=== PATIENT | male | born 1945 | race Caucasian/White ===

== ENCOUNTER 2022-01-28 15:59 | Emergency (ER) | payer MEDICARE ==
[2022-01-28 16:34] LABS: BASOPHILS % (AUTO) 0.2 %; EOSINOPHILS % (AUTO) 0.1 %; HCT - HEMATOCRIT 38.9 % (42.0-52.0); HGB - HEMOGLOBIN 13.1 g/dL (14.0-18.0); LYMPHOCYTES # (AUTO) 1.7 10^3/uL (1.5-3.5); LYMPHOCYTES % (AUTO) 19.9 %; MEAN CORPUSCULAR HGB CONC 33.7 g/dL (32.0-36.0); MEAN CORPUSCULAR VOLUME 92.2 fL (80.0-94.0); MEAN PLATELET VOLUME 10.3 fL (7.4-11.4); MONOCYTES # (AUTO) 0.6 10^3/uL (0.0-1.0); NEUTROPHILS # (AUTO) 6.2 10^3/uL (1.5-6.6); NEUTROPHILS % (AUTO) 72.6 %; PLT - PLATELET COUNT 187 10^3/uL (130-450); RED BLOOD COUNT 4.22 10^6/uL (4.70-6.10); RED CELL DISTRIBUTION WIDTH 12.8 % (12.0-15.0); WHITE BLOOD COUNT 8.6 x10^3/uL (4.8-10.8)
[2022-01-28 16:47] LABS: PT - PROTHROMBIN TIME 11.2 secs (9.9-12.6)
[2022-01-28 16:49] LABS: ALBUMIN 4.2 g/dL (3.2-5.5); ALBUMIN/GLOBULIN RATIO 1.8 (1.0-2.2); BILIRUBIN,TOTAL 0.7 mg/dL (0.2-1.0); CALCIUM 9.5 mg/dL (8.5-10.3); POTASSIUM 3.7 mmol/L (3.5-5.0); TOTAL PROTEIN 6.6 g/dL (6.7-8.2)
--- NOTE | 2022-01-28 16:54 | ED Physician Documentation ---
History of Present Illness - Stated complaint Stated Complaint: DIZZINESS - Chief complaint Chief Complaint: Neuro - Additonal information Additional information: 76-year-old male presents to the emergency department for the feeling of somet imes being lightheaded with exertion. He occasionally will lose thought with activities especially when he is walking the beach or picking up shells. Sometimes he will simply be at rest at home and get a sudden feeling of being lightheaded. He calls this "like I am going to faint." He denies that he has any chest pain or shortness of air. No neck arm or jaw pain. He denies a sensation of the room spinning or feeling off balance. No falls or trauma. His symptoms began about a year and a half ago though have gotten progressively more frequent He states that his dad was diagnosed with a brain tumor at about this age. He denies any pertinent past medical history. Non-smoker no alcohol use. Is never been treated for hypertension diabetes or any cardiovascular disorders. Review of Systems Constitutional: denies: Fever, Chills Eyes: denies: Loss of vision, Decreased vision Ears: reports: Reviewed and negative Nose: reports: Reviewed and negative Throat: reports: Dental pain / toothache Cardiac: reports: Reviewed and negative Respiratory: reports: Reviewed and negative GI: reports: Reviewed and negative : reports: Reviewed and negative Skin: denies: Rash, Lesions Musculoskeletal: denies: Neck pain, Back pain, Extremity pain Neurologic: reports: Near syncope. denies: Generalized weakness, Focal weakness, Numbness, Syncope, Seizure, Confused, Headache PD PAST MEDICAL HISTORY - Allergies Allergies/Adverse Reactions: Allergies Allergy/AdvReac Type Severity Reaction Status Date / Time No Known Drug Allergies Allergy Verified 01/28/22 16:17 PD ED PE NORMAL - General General: Alert and oriented X 3, No acute distress, Well developed/nourished - HEENT HEENT: Atraumatic, Ears normal, Moist mucous membranes, Pharynx benign - Neck Neck: Supple, no meningeal sign, No adenopathy - Cardiac Cardiac: RRR, No murmur - Respiratory Respiratory: Clear bilaterally - Abdomen Abdomen: Normal bowel sounds, Soft, Non tender - Back Back: No CVA TTP, No spinal TTP - Derm Derm: Normal color, Warm and dry, No rash - Extremities Extremities: No deformity - Neuro Neuro: Alert and oriented X 3, counter waitress/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, No motor deficit, Normal speech, Other (Normal finger-nose, normal gait, normal heel toe, normal rapid alternating) Eye Opening: Spontaneous Motor: Obeys Commands Verbal: Oriented GCS Score: 15 - Psych Psych: Normal mood Results - Vitals Vitals: Vital Signs - 24 hr 01/28/22 01/28/22 01/28/22 16:11 16:46 17:16 Temperature 36.9 C Heart Rate 62 72 65 Heart Rate [ Sitting] Heart Rate [ Standing] Heart Rate [ Supine] Respiratory 16 16 21 Rate Blood Pressure 150/77 H 129/74 134/76 H Blood Pressure [Sitting] Blood Pressure [Standing] Blood Pressure [Supine] O2 Saturation 96 96 97 01/28/22 17:18 Temperature Heart Rate Heart Rate [ 67 Sitting] Heart Rate [ 65 Standing] Heart Rate [ 65 Supine] Respiratory Rate Blood Pressure Blood Pressure 122/72 [Sitting] Blood Pressure 134/76 H [Standing] Blood Pressure 127/66 [Supine] O2 Saturation Oxygen O2 Source Room air - EKG (time done) 1606 Rate: Rate (enter#) (67) Rhythm: NSR [place]: Normal Intervals: Normal NM QRS: Normal Ischemia: Q waves (Inferior and anterior leads) Compare to prior EKG: Old EKG unavailable Computer interpretation: Agree with computer - Labs Labs: Laboratory Tests 01/28/22 01/28/22 01/28/22 16:29 16:29 16:29 WBC 8.6 RBC 4.22 L Hgb 13.1 L Hct 38.9 L MCV 92.2 MCH 31.0 MCHC 33.7 RDW 12.8 Plt Count 187 MPV 10.3 Neut # (Auto) 6.2 Lymph # (Auto) 1.7 Desha # (Auto) 0.6 Eos # (Auto) 0.0 Baso # (Auto) 0.0 Absolute Nucleated RBC 0.00 Nucleated RBC % 0.0 PT INR Sodium 134 L Potassium 3.7 Chloride 102 Carbon Dioxide 25 Anion Gap 7.0 BUN 16 Creatinine 1.0 Estimated GFR (MDRD) 73 L Glucose 135 H Calcium 9.5 Total Bilirubin 0.7 AST 26 ALT 19 Alkaline Phosphatase 48 Troponin I High Sens 4.0 Total Protein 6.6 L Albumin 4.2 Globulin 2.4 Albumin/Globulin Ratio 1.8 Lipase 37 01/28/22 16:36 WBC RBC Hgb Hct MCV MCH MCHC RDW Plt Count MPV Neut # (Auto) Lymph # (Auto) Desha # (Auto) Eos # (Auto) Baso # (Auto) Absolute Nucleated RBC Nucleated RBC % PT 11.2 INR 1.0 Sodium Potassium Chloride Carbon Dioxide Anion Gap BUN Creatinine Estimated GFR (MDRD) Glucose Calcium Total Bilirubin AST ALT Alkaline Phosphatase Troponin I High Sens Total Protein Albumin Globulin Albumin/Globulin Ratio Lipase - Rads (name of study) cxr Radiology: Final report received (No acute cardiopulmonary process) head CT Radiology: Final report received (No acute intracranial process) PD MEDICAL DECISION MAKING - ED course Complexity details: reviewed results, re-evaluated patient, considered differential, d/w patient ED course: This is a remarkably well-appearing 76-year-old male that comes to the emergency department with vague constitutional symptoms that have been getting progressively worse over the last year. Predominantly he is expressing that he often will get a sudden feeling of being lightheaded. No feelings of being off balance. He denies that he has a sensation of dizziness or that the room is spinning. Sometimes this symptom of presyncope occurs with activity but can occur simply at rest. He is also described to this provider very vivid dreams recently and brief episodes with a lapse in memory where he is unsure what he is doing or why. Clinically he appears well. His orthostatic blood pressures are negative. He had a normal neuro and cerebellar exam. A CT of the head showed no tumor mass- effect or lesion. Screening EKG suggest old infarct in the inferior and perhaps anterior leads but he has no chest pain or dyspnea. Screening CBC electrolytes and troponin are all negative. Chest x-ray is without acute focal findings. Given his age I did report that he should be seen by his primary care provider as he would likely benefit from a stress test and/or echocardiogram. However some of the lapses in memory may be early age-related changes and I have advised him to discuss this with his doctor to determine if he would benefit from further evaluation and testing of such. Otherwise he is stable for discharge home. Emergent return precautions discussed Departure - Departure Disposition: 01 Home, Self Care Clinical Impression: Light-headed feeling, Memory changes Condition: Stable Record reviewed to determine appropriate education?: Yes Comments: Satish dennis have been seen in the emergency department today because you have been occasionally feeling lightheaded. You get brief rushes of altered sensorium. You have also occasionally had brief lapses in memory. Your screening EKG chest x-ray and labs as well as a CT of your head are all essentially unremarkable without findings to suggest infection, infarction,'s stroke or tumors. I do suggest that you follow-up closely with your primary care doctor. You may benefit from referral to a [employer] developer for stress testing and/or echoc ardiogram. You may also want to discuss with your primary care doctor if some of the symptoms that you are experiencing are age-related or age-related memory changes. If at any point you have any fainting episodes, sudden confusion, slurred speech, cannot walk normally or have focal weakness in your arms or legs you should return immediately to the ER for a second evaluation
--- NOTE | 2022-01-28 17:06 | XRAY Report ---
PROCEDURE: Chest 1 View X-Ray INDICATIONS: Chest Pain TECHNIQUE: One view of the chest was acquired. COMPARISON: None FINDINGS: Surgical changes and devices: None. Lungs and pleura: No pleural effusions or pneumothorax. Lungs are clear. Mediastinum: Mediastinal contours appear normal. Heart size is mildly enlarged. Bones and chest wall: No suspicious bony lesions. Overlying soft tissues appear unremarkable. IMPRESSION: No acute pulmonary process. Reviewed by: Angelita Hoffman MD on 01/28/2022 5:04 PM PDT Approved by: Angelita Hoffman MD on 01/28/2022 5:04 PM PDT Station ID: [id number]
--- NOTE | 2022-01-28 17:39 | CT Report ---
PROCEDURE: HEAD WO INDICATIONS: light headed; occassional confusion TECHNIQUE: Noncontrast 4.5 mm thick angled axial sections acquired from the foramen magnum to the vertex. For r adiation dose reduction, the following was used: automated exposure control, adjustment of mA and/or kV according to patient size. COMPARISON: None. FINDINGS: Image quality: Excellent. CSF spaces: Basal cisterns are patent. No extra-axial fluid collections. Ventricles are normal in size and shape. Brain: No midline shift. No intracranial masses or hemorrhage. Dueñas-white matter interface is norm al. Skull and face: Calvarium and visualized facial bones are intact, without suspicious lesions. Sinuses: Visualized sinuses and mastoids are clear. IMPRESSION: Normal head CT. Reviewed by: Johanne Sims MD on 01/28/2022 5:37 PM PDT Approved by: Johanne Sims MD on 01/28/2022 5:37 PM PDT Station ID: [id number]
[2022-01-28 17:55] VITALS: BP 123/68
== END 2022-01-28 18:02 | disposition home or self-care (01) ==
LOC: ED 15:59
DX: R42 Dizziness and giddiness (principal); R41.3 Other amnesia
CPT/HCPCS: 36415; 80053; 83690; 84484; 85025; 85610; 93005; 99283; 99284

== ENCOUNTER 2023-01-18 19:59 | Emergency (ER) | payer MEDICARE ==
[2023-01-18 20:51] LABS: BASOPHILS % (AUTO) 0.4 %; EOSINOPHILS % (AUTO) 0.2 %; HCT - HEMATOCRIT 40.5 % (42.0-52.0); HGB - HEMOGLOBIN 13.5 g/dL (14.0-18.0); LYMPHOCYTES # (AUTO) 1.5 10^3/uL (1.5-3.5); LYMPHOCYTES % (AUTO) 17.7 %; MEAN CORPUSCULAR HEMOGLOBIN 30.9 pg (27.0-31.0); MEAN CORPUSCULAR HGB CONC 33.3 g/dL (32.0-36.0); MEAN CORPUSCULAR VOLUME 92.7 fL (80.0-94.0); MEAN PLATELET VOLUME 10.6 fL (7.4-11.4); MONOCYTES # (AUTO) 0.5 10^3/uL (0.0-1.0); MONOCYTES % (AUTO) 5.6 %; NEUTROPHILS # (AUTO) 6.4 10^3/uL (1.5-6.6); NEUTROPHILS % (AUTO) 75.9 %; PLT - PLATELET COUNT 199 10^3/uL (130-450); RED BLOOD COUNT 4.37 10^6/uL (4.70-6.10); RED CELL DISTRIBUTION WIDTH 12.7 % (12.0-15.0); WHITE BLOOD COUNT 8.5 x10^3/uL (4.8-10.8)
[2023-01-18 20:57] LABS: ALBUMIN 4.3 g/dL (3.2-5.5); ALBUMIN/GLOBULIN RATIO 1.6 (1.0-2.2); BILIRUBIN,TOTAL 0.5 mg/dL (0.2-1.0); CALCIUM 9.4 mg/dL (8.5-10.3); CREATININE 1.1 mg/dL (0.6-1.2); POTASSIUM 3.9 mmol/L (3.5-5.0)
[2023-01-18 21:28] LABS: BILIRUBIN,URINE NEGATIVE (NEGATIVE); GLUCOSE, URINE (UA) NEGATIVE (NEGATIVE); KETONES,URINE (UA) NEGATIVE (NEGATIVE); LEUKOCYTE ESTERASE, URINE NEGATIVE (NEGATIVE); NITRITE,URINE NEGATIVE (NEGATIVE); OCCULT BLOOD,URINE NEGATIVE (NEGATIVE); PROTEIN,URINE NEGATIVE (NEGATIVE); UROBILINOGEN,URINE 0.2 (NORMAL) E.U./dL (NORMAL)
[2023-01-18 21:30] LABS: CLARITY,URINE CLEAR (CLEAR)
--- NOTE | 2023-01-18 22:13 | CT Report ---
PROCEDURE: HEAD WO INDICATIONS: confusion TECHNIQUE: Noncontrast 4.5 mm thick angled axial sections acquired from the foramen magnum to the vertex. For r adiation dose reduction, the following was used: automated exposure control, adjustment of mA and/or kV according to patient size. COMPARISON: None. FINDINGS: Image quality: There is mild motion artifact inferiorly. CSF spaces: Basal cisterns are patent. No extra-axial fluid collections. Ventricles are normal in size and shape. Brain: No intracranial hemorrhage, mass, or mass effect. Dueñas-white matter interface appears preser pema. Skull and face: Calvarium and visualized facial bones are intact, without suspicious lesions. Sinuses: Visualized sinuses and mastoids are clear. IMPRESSION: 1. No acute intracranial abnormality. Reviewed by: Mariusz Horton MD on 01/18/2023 10:12 PM PDT Approved by: Mariusz Horton MD on 01/18/2023 10:12 PM PDT Station ID: [id number]
--- NOTE | 2023-01-18 23:24 | ED Physician Documentation ---
History of Present Illness - Stated complaint Stated Complaint: STROKE-LIKE SYMPTOMS - Chief complaint Chief Complaint: Neuro - History obtained from History obtained from: Patient - Additonal information Additional information: 77-year-old man, previously healthy presents with confusion starting around 11 AM when he felt that he was "a little bit foggy". Patient is disoriented to year and month but knows that he is in [place]. He is unable to state his address on request. Endorses some dysuria and mild frontal headache. Collateral history obtained from patient's ex- Bhavna ([phone]) who states that she talks on the phone with him every night and that last year he had some confused spells and had a negative work-up at [facility]. She also states that he told her that he felt weird yesterday afternoon. PD PAST MEDICAL HISTORY - Allergies Allergies/Adverse Reactions: Allergies Allergy/AdvReac Type Severity Reaction Status Date / Time No Known Drug Allergies Allergy Verified 01/18/23 20:19 - Social History Does the pt smoke?: No Smoking Status: Never smoker PD ED PE NORMAL - Vitals Vital signs reviewed: Yes - General General: Alert and oriented X 3, No acute distress, Well developed/nourished - HEENT HEENT: Atraumatic, PERRL, EOMI - Neck Neck: Supple, no meningeal sign - Cardiac Cardiac: RRR - Respiratory Respiratory: No respiratory distress, Clear bilaterally - Abdomen Abdomen: Non tender, Non distended - Derm Derm: Normal color, Warm and dry - Neuro Neuro: Alert and oriented X 3, metal drawer 2-12 intact, No motor deficit, No sensory deficit Eye Opening: Spontaneous Motor: Obeys Commands Verbal: Confused GCS Score: 14 - Psych Psych: Normal mood, Normal affect Results - Vitals Vitals: Vital Signs - 24 hr 01/18/23 01/18/23 01/18/23 20:04 20:45 21:19 Temperature 37 C Heart Rate 70 71 68 Respiratory 18 17 17 Rate Blood Pressure 148/62 H 135/83 H 128/73 O2 Saturation 99 99 100 01/18/23 01/18/23 01/18/23 21:30 22:30 23:30 Temperature Heart Rate 66 62 64 Respiratory 16 18 18 Rate Blood Pressure 130/73 126/69 129/77 O2 Saturation 98 97 96 01/19/23 00:00 Temperature Heart Rate 63 Respiratory 16 Rate Blood Pressure 121/86 H O2 Saturation 98 Oxygen O2 Source Room air - Labs Labs: Laboratory Tests 01/18/23 01/18/23 01/18/23 20:21 20:21 21:14 WBC 8.5 RBC 4.37 L Hgb 13.5 L Hct 40.5 L MCV 92.7 MCH 30.9 MCHC 33.3 RDW 12.7 Plt Count 199 MPV 10.6 Neut # (Auto) 6.4 Lymph # (Auto) 1.5 [place] # (Auto) 0.5 Eos # (Auto) 0.0 Baso # (Auto) 0.0 Absolute Nucleated RBC 0.00 Nucleated RBC % 0.0 Sodium 139 Potassium 3.9 Chloride 107 Carbon Dioxide 27 Anion Gap 5.0 L BUN 16 Creatinine 1.1 Estimated GFR (MDRD) 65 L Glucose 127 H Calcium 9.4 Total Bilirubin 0.5 AST 26 ALT 19 Alkaline Phosphatase 55 Total Protein 7.0 Albumin 4.3 Globulin 2.7 Albumin/Globulin Ratio 1.6 Lipase 41 Urine Color YELLOW Urine Clarity CLEAR Urine pH 6.[address] 1.020 Urine Protein NEGATIVE Urine Glucose (UA) NEGATIVE Urine Ketones NEGATIVE Urine Occult Blood NEGATIVE Urine Nitrite NEGATIVE Urine Bilirubin NEGATIVE Urine Urobilinogen 0.2 (NORMAL) Ur Leukocyte Esterase NEGATIVE Ur Microscopic Review NOT INDICATED Urine Culture Comments NOT INDICATED PD Medical Decision Making - ED course ED course: 77-year-old man with history of confusional episodes about a year ago, independently living at home, presents with confusion and disorientation today per ex- who he talks on the phone with and himself. CBC, abdominal panel, urinalysis, head CT ordered and were unremarkable. Plan to discuss with patient and his daughter Bianca. Talked on the phone with Daughter Bianca [phone] who lives in [place], [place]. She states he has had some cognitive issues in the past few months including several spells of confusion. The patient texted Bianca and said he didn't know the day or date. He lives alone with his dog and doesn't know any neighbors. He has lived here a couple years. I discussed need for him to get a primary care provider, likely benefit of dementia medication such as remeron or memantine. d/w ex Bhavna [phone] again who states she has a number for a next door neighbor [phone], [employer] who may be able to take him home and check on his dog. Patient does not want his neighbor to pick him up, stating "he's ornery". He is requesting to drive home and now remembers his address, reciting it for us. [employer]. Cab voucher provided. Patient will f/u with a PCP for further evaluation of early symptoms of dementia. referral provided. return precautions given. Departure - Departure Disposition: Home, Self Care Clinical Impression: Confusion Condition: Stable Instructions: Dementia Follow-Up: Erick Vasquez MD [Provider Admit Priv/Credential] - Comments: You were seen in the emergency department for confusion. Your lab work, urine, and head CT uncovered no reversible cause. After talking with your family we believe you are showing signs of dementia. You might benefit from a dementia medication as prescribed by a primary care provider. I am enclosing a referral for a primary care provider. Please follow-up with them and speak with your daughter and ex- about goals of long-term care.
[2023-01-19 00:48] VITALS: BP 131/100
== END 2023-01-19 01:00 | disposition home or self-care (01) ==
LOC: ED 19:59
DX: R41.0 Disorientation, unspecified (principal)
CPT/HCPCS: 36415; 80053; 81001; 81003; 83690; 85025; 87086; 99284

== ENCOUNTER 2023-01-20 12:20 | Emergency (ER) | payer MEDICARE ==
[2023-01-20 12:39] VITALS: BP 141/73
--- NOTE | 2023-01-20 14:14 | ED Physician Documentation ---
History of Present Illness - Stated complaint Stated Complaint: MEMORY LOSS/CONFUSION - Chief complaint Chief Complaint: Neuro - History obtained from History obtained from: Patient - History of Present Illness Pain level max: 0 Pain level now: 0 - Additonal information Additional information: 77-year-old male states that he felt confused this morning. He states he had trouble remembering who his neighbor was. He states he feels better now. Was seen for similar events yesterday. Had normal blood work, normal head CT and normal urinalysis. He states that these episodes been going on for over a year. Does not yet have a primary care provider. Lives alone at home with his dog. He states he does not feel confused now. Nothing seems to make it better or worse. No slurred speech or word finding difficulties. No numbness or tingling. No focal motor deficits. No fevers, chills, recent illness. No trauma. No head, neck, back pain. Review of Systems Constitutional: denies: Fever, Chills Ears: denies: Ear pain Nose: denies: Rhinorrhea / runny nose, Congestion PD PAST MEDICAL HISTORY - Past Medical History Past Medical History: No - Allergies Allergies/Adverse Reactions: Allergies Allergy/AdvReac Type Severity Reaction Status Date / Time No Known Drug Allergies Allergy Verified 01/20/23 12:37 - Living Situation Living Arrangement: reports: At home - Social History Does the pt smoke?: No Smoking Status: Never smoker PD ED PE NORMAL - Vitals Vital signs reviewed: Yes - General General: Alert and oriented X 3, No acute distress, Well developed/nourished - HEENT HEENT: Atraumatic, PERRL, Moist mucous membranes, Pharynx benign - Neck Neck: Supple, no meningeal sign, No bony TTP - Cardiac Cardiac: RRR, Strong equal pulses - Respiratory Respiratory: No respiratory distress, Clear bilaterally - Abdomen Abdomen: Soft, Non tender, Non distended - Back Back: No spinal TTP - Derm Derm: Warm and dry - Extremities Extremities: No edema, No calf tenderness / cord - Neuro Neuro: Alert and oriented X 3, coal tram driver 2-12 intact, No motor deficit, No sensory deficit, Normal speech Eye Opening: Spontaneous Motor: Obeys Commands Verbal: Oriented GCS Score: 15 - Psych Psych: Normal mood, Normal affect Results - Vitals Vitals: Vital Signs - 24 hr 01/20/23 12:33 Temperature 36.3 C L Heart Rate 70 Respiratory 16 Rate Blood Pressure 141/73 H O2 Saturation 100 Oxygen O2 Source Room air PD Medical Decision Making - ED course Complexity details: reviewed old records, considered differential, d/w patient ED course: 77-year-old male with intermittent confusion for the past several months to year. He did have some confusion this morning. About 24 hours ago had a negative head CT negative lab work and negative urinalysis. We did discuss an MRI, unfortunately the c t tech is not here today and will not be back for 4 more days. The patient is alert, oriented, appropriate. No current deficits. NIH stroke scale of 0. Given that he is currently asymptomatic, we will start him on a baby aspirin and have him follow-up with a PCP for further neurological work-up. He is welcome to return if his symptoms recur for a potential MRI. Likely that this represents some form of dementia. Patient counseled regarding signs and symptoms for which I believe and urgent re-evaluation would be necessary. Patient with good understanding of and agreement to plan and is comfortable going home at this time This document was made in part using voice recognition software. While efforts are made to proofread this document, sound alike and grammatical errors may occur. Departure - Departure Disposition: 01 Home, Self Care Clinical Impression: Confusion Condition: Good Instructions: ED Confusion Follow-Up: Mreon Cevallos MD [Provider Admit Priv/Credential] - Meron Cevallos MD [Provider Admit Priv/Credential] - [facility] [Provider Group] [facility] [Provider Group] Primary[facility]Walk [facility] [Provider Group] [facility] [Provider Group] [facility] [Provider Group] Comments: Please follow-up with a local primary care provider for further care. As we discussed the neck step in the work-up would be an MRI, but this is unavailable until Monday. Please return if you worsen. Your head CT from yesterday did not show any acute abnormalities. Your laboratory testing did not show any acute abnormalities either, it is unlikely that either of these have changed in the past 24 hours. As we discussed, please start on a baby aspirin daily. Discharge Date/Time: 01/20/23 14:20
== END 2023-01-20 14:20 | disposition home or self-care (01) ==
LOC: ED 12:20
DX: R41.0 Disorientation, unspecified (principal)
CPT/HCPCS: 99281; 99283